=== PATIENT | male | born 1970 | race Caucasian/White ===

== ENCOUNTER 2024-06-11 09:29 | Outpatient (OUT) | payer BC, SELFPAY ==
[2024-06-11 10:26] LABS: Alanine Aminotransferase 87 U/L (16-63); Anion Gap 11.5; BUN Creatinine Ratio 12.7; Calcium 9.2 mg/dL (8.5-10.1); Carbon Dioxide 28.9 mmol/L (21.0-32.0); Chloride 102 mmol/L (98-107); Chol HDL Ratio 4.3; Cholesterol 209 mg/dL (<=200); Estimated GFR (African America >60 (>=60 mL/min/1.73m^2); Estimated GFR (Non-African Ame 55 (>=60 mL/min/1.73m^2); Glucose 184 mg/dL (74-106); HDL Cholesterol 49 mg/dL (40-60); Potassium 4.4 mmol/L (3.5-5.1); Sodium 138 mmol/L (136-145); Triglycerides 145 mg/dL (<=150)
[2024-06-11 10:46] LABS: Estimated Average Glucose 206 mg/dL; Glycohemoglobin A1C 8.8 % (4.5-6.2)
== END 2024-06-11 09:30 | disposition home or self-care (01) ==
LOC: LAB 09:29
DX: E11.9 Type 2 diabetes mellitus without complications (principal)
CPT/HCPCS: 36415; 80048; 80061; 83036; 84460

== ENCOUNTER 2024-10-25 12:53 | Outpatient (OUT) | payer BC, SELFPAY ==
--- OUTSIDE RECORDS SUMMARY | 2024-10-25 12:58 | XMS_ITS | Clinical Summary ---
Author Organization [facility] Address [address] [place] [address] Care Team Providers Care Automation Application Engineer Name Role Phone Unavailable Primary Care Provider Unavailabl e Allergies No known active allergies Medications ASPIRIN EC [address] Take 1 tablet by mouth. Active Atorvastatin 20 MG tablet Take 1 tablet by mouth at bedtime. 3 Active Jardiance 25 MG tablet Take 1 tablet by mouth daily every morning. 3 Active metFORMIN 500 MG tablet TAKE 2 TABLETS BY MOUTH TWICE DAILY WITH MORNING MEAL AND WITH EVENING MEAL 3 Active tizanidine 4 MG capsule TAKE 1 CAPSULE BY MOUTH THREE TIMES DAILY FOR 7 DAYS 3 Active traMADol 50 MG tablet TAKE 1 TABLET BY MOUTH 4 TIMES DAILY NEEDED FOR RIB PAIN 3 Active lidocaine 5 % Patch patch Place 1 patch on skin every 24 hours. Max of 12 hours of application then remove. 12 patch 3 Active Celecoxib 200 MG capsuleIndicatio ns:Segmental and somatic dysfunction of sacral region Take 1 capsule by mouth daily. 30 capsule 5 3 Active Social History Tobacco Use Types Packs/Day Years Used Date Smoking Tobacco: Never Smokeless Tobacco: Never Tobacco Cessation:Counseling Given: Not Answered Alcohol Use Standard Drinks/Week Comments Yes 2 (1 standard drink = 0.6 oz pur e alcohol) Sex and Gender Information Value Date Recorded Sex Assigned at Not on file Legal Sex Male 3:28 AM EST Gender Identity Not on file Sexual Orientation Not on file Last Filed Vital Signs Vital Sign Reading Time Taken Comments Blood Pressure 106/74 04/30/2022 2:43 PM EST Pulse 63 04/30/2022 2:43 PM EST Temperature 36.6 C (97.8 F) 04/27/2022 3:38 AM EST Respiratory Rate 18 04/30/2022 2:43 PM EST Oxygen Saturation 95% 04/30/2022 2:43 PM EST Inhaled Oxygen Concentration - - Weight 108.9 kg (240 lb 1.3 oz) 04/30/2022 2:43 PM EST Height 175.3 cm (5' 9.02 ) 04/30/2022 2:43 PM ES T Body Mass Index 35.44 04/30/2022 2:43 PM EST Plan of Treatment Health Maintenance Due Date Last Done Comments HEPATITIS C VIRUS SCREENING 1968 TETANUS 1968 HIV SCREENING DISCUSSION 08/27/1983 HEP B VACCINE (1 of 3 - 19+ 3-dose series) 08/27/1987 TDAP (ADULT) 08/27/1987 LIPID SCREENING 2008 COLORECTAL CANCER SCREENING DISCUSSION 2013 PNEUMOCOCCAL VACCINE SERIES (1 of 1 - PCV) 2018 ZOSTER (SHINGLES) VACCINE (1 of 2) 2018 PROSTATE CANCER SCREENING DISCUSSION 08/27/2023 COVID-19 VACCINE (1 - season) 2023 INFLUENZA VACCINE (#1) 2024 Insurance [facility] PPO POS Member Subscriber Plan / Payer (Ef fective 2020-Present) Name:SLICK LY Relation to Subscriber:Self Name:Slick Ly Payer ID:[id number] (NAIC) Type:Not on file Address: [address] [place] [id number]
--- OUTSIDE RECORDS SUMMARY | 2024-10-25 12:58 | XMS_ITS | Patient Health Record ---
Author Organization [facility] Address [address] [place] [address] Care Team Providers Care Supervisor Roller Printing Name Role Phone Roxy Segoviay Primary Care Provider Unavailabl e Reason For Referral No Information Plan Of Treatment No Information Insurance Providers Payer Name Payer Address Payer Phone Subscriber Number Group Number Insured Name Patient Relationship to Insured Coverage Start Date Coverage End Date [facility] [address] [place] [phone] [id number] SLICK CHERY Self - patient is the insured
--- OUTSIDE RECORDS SUMMARY | 2024-10-25 12:58 | XMS_ITS | Clinical Summary ---
Author Organization [facility] Address [address], [address] [place] [address] Care Team Providers Care Hunter Guide Name Role Phone Sofia De PA-C Primary Care Provider [phone] Allergies No known active allergies Medications metFORMIN (GLUCOPHAGE) 500 MG tablet Take 1 tablet by mouth 2 times daily (with meals) Active atorvastatin (LIPITOR) 20 MG tablet Take 1 tablet by mouth daily Active empagliflozin (JARDIANCE) 25 MG tablet Take 1 tablet by mouth daily Active ondansetron (ZOFRAN-ODT) 4 MG disintegrating tablet Take 1 tablet by mouth 3 times daily as needed for Nausea or Vomiting 21 tablet Active Social History Tobacco Use Types Packs/Day Years Used Date Smoking Tobacco: Never Smokeless Tobacco: Former Tobacco Cessation:Counseling Given: Not Answered Alcohol Use Standard Drinks/Week Comments Yes 0 (1 standard drink = 0.6 oz pur e alcohol) occasional Interpersonal Safety Domain Source: IP Abuse Scr eening Answer Date Recorded Read-Only, Retired: Physical Abuse Denies 04/22/2023 Read-Only, Retired: Verbal Abuse Denies 04/22/2023 Read-Only, Retired: Emotional abuse Denies 04/22/2023 Financial abuse Not on file 04/22/2023 Sexual abuse Not on file 04/22/2023 Sex and Gender Information Value Date Recorded Sex Assigned at Not on file Legal Sex Male 11:38 AM EDT Gender Identity Not on file Sexual Orientation Not on file Last Filed Vital Signs Vital Sign Reading Time Taken Comments Blood Pressure 128/83 04/22/2023 7:00 PM EST Pulse 73 04/22/2023 4:55 PM EST Temperature 36.7 C (98 F) 04/22/2023 4:55 PM EST Respiratory Rate 16 04/22/2023 4:55 PM EST Oxygen Saturation 93% 04/22/2023 7:00 PM EST Inhaled Oxygen Concentration - - Weight 108.9 kg (240 lb) 04/22/2023 4:55 PM EST Height 176.5 cm (5' 9.5 ) 04/22/2023 4:55 PM EST Body Mass Index 34.93 04/22/2023 4:55 PM EST Plan of Treatment Health Maintenance Due Date Last Done Comments Depression Screen 1980 HIV screen 08/27/1983 Hepatitis C screen 1986 DTaP/Tdap/Td vaccine (1 - Tdap) 08/27/1987 Hepatitis B vaccine (1 of 3 - 19+ 3-dose series) 08/27/1987 Colonoscopy 2013 Colorectal Cancer Screen 2013 FIT/FOBT: Average risk 2013 Fecal-DNA (Cologuard): Average risk 2013 Sigmoidoscopy/CT colonography 2013 Pneumococcal 50+ years Vaccine (1 of 1 - PCV) 2018 Shingles vaccine (1 of 2) 2018 COVID-19 Vaccine (1 - season) 2023 Lipids 07/20/2024 07/21/2023, 05/02, 10/25/2021 Flu vaccine (#1) 10/01/2024 A1C test (Diabetic or Prediabetic) 12/09/2024 12/10/2023, 07/21/2023, 01/06/2023, Additional history exists Diabetes screen Discontinued 12/10/2023, 07/02, 01/06/2023, Additional history exists Hepatitis A vaccine Aged Out No longe r eligible based on patient's age to complete this topic Hib vaccine Aged Out No longer eligi ble based on patient's age to complete this topic Meningococcal (ACWY) vaccine Aged Out No longer eligible based on patient's age to complete this topic Meningococcal B vaccine Aged Out No l onger eligible based on patient's age to complete this topic Polio vaccine Aged Out No longer elig ible based on patient's age to complete this topic Procedures Procedure Name Priority Date/Time Associated Diagnosis Comments HEMOGLOBIN A1C, HEALTH FAIR Routine 12/10/2023 9:44 AM EDT LIPID PANEL Routine 07/21/2023 12:57 PM EDT from Last 3 Months or Most Recently Relevant to Health Maintenance Results * (ABNORMAL) Hemoglobin A1c, Health Fair (12/10/2023 9:44 AM EDT) Hemoglobin A1C 6.3(H) 4.0 - 5.6 % 12/10/2023 9:44 AM EDT [facility] Comment: [place] [employer] guidelines indicate that patients with HgbA1C in the range of 5.7-6.4% are at increased risk for development of diabetes, and intervention by lifestyle modification may be beneficial. HgbA1C greater than or equal to 6.5% is considered diagnostic of diabetes. Hemoglobin A1c should not be used in patients with homozygous sickle cell trait, hemolytic anemia, or other hemolytic diseases and recent significant or chronic blood loss or blood transfusions. Alternative forms of testing such as glycated serum protein or glycated albumin should be considered for these patients. Estimated Avg Glucose 135 mg/dL 12/10/2023 9:44 AM EDT [facility] Comment: Estimated Average Glucose is a caluculated value from Hemoglobin A1C and is healthcare representative of the average blood glucose level in the last 2-3 month period. Blood Whole 12/10/2023 9:44 AM EDT 12/10/2023 9:44 AM EDT [facility] HEMATOLOGY ORDERABLES Final Resu lt [facility] [address] [place], [place] [id number] * Lipid Panel (07/21/2023 12:57 PM EDT) Cholesterol, Total 126 100 - 200 mg/dL 07/21/2023 12:57 PM EDT [facility] Comment: <200 mg/dL is recommended cholesterol level. Triglycerides 59 10 - 150 mg/dL 07/21/2023 12:57 PM EDT [facility] HDL 58 >40 mg/dL 07/21/2023 12:57 PM EDT [facility] LDL Cholesterol 56 20 - 100 mg/dL 07/21/2023 12:57 PM EDT [facility] CHOLESTEROL/HDL RELATIVE RISK 2 1 - 5 Ratio 07/21/2023 12:57 PM EDT [facility] Blood Serum 07/21/2023 12:5 7 PM EDT 07/21/2023 12:57 PM EDT us Sofia De PA-C CHEMISTRY ORDERABLES Final Result [facility] [address] [address] from Last 3 Months or Most Recently Relevant to Health Maintenance Insurance [place] [employer] Care Teams Hunter Guide Relationship Specialty Start Date End Date Sofia De PA-C [address] [place] [address] PCP - General Physician Site Manager 05/21/22
--- OUTSIDE RECORDS SUMMARY | 2024-10-25 12:58 | XMS_ITS | Clinical Summary ---
Author Organization [facility] Address [facility] [place] [address] Care Team Providers Care Product Merchandiser Name Role Phone No, Physician Primary Care Provider Unavailabl e Allergies No known active allergies Medications Jardiance 25 mg Tab 10/08/2021 Active metFORMIN (GLUCOPHAGE) 500 MG tablet TAKE 2 TABLETS BY MOUTH TWICE DAILY WITH MORNING MEAL AND WITH EVENING MEAL 09/23/2021 Active atorvastatin (LIPITOR) 20 MG tablet 10/08/2021 Active aspirin 325 MG EC tablet Take 1 (one) tablet (325 mg total) by mouth . Active tadalafiL 20 MG tablet 10/31/2021 Active pseudoephedrine -DM-guaiFENesin 60-15-400 mg Tab Take 1 (one) tablet by mouth 3 (three) times a day as needed . 20 tablet 07/24/2024 Active Active Problems No known active problems Social History Tobacco Use Types Packs/Day Years Used Date Smoking Tobacco: Never Smokeless Tobacco: Former Tobacco Cessation:Counseling Given: Not Answered Alcohol Use Standard Drinks/Week Comments Yes 0 (1 standard drink = 0.6 oz pur e alcohol) Sex and Gender Information Value Date Recorded Sex Assigned at Not on file Legal Sex Male 9:43 AM EDT Gender Identity Not on file Sexual Orientation Not on file Last Filed Vital Signs Vital Sign Reading Time Taken Comments Blood Pressure 135/82 07/24/2024 10:01 AM EDT Pulse 78 07/24/2024 10:01 AM EDT Temperature 36.2 C (97.1 F) 07/24/2024 10:01 AM EDT Respiratory Rate 16 07/24/2024 10:01 AM EDT Oxygen Saturation 96% 07/24/2024 10:01 AM EDT Inhaled Oxygen Concentration - - Weight 109.8 kg (242 lb) 07/24/2024 10:01 AM EDT Height 175.3 cm (5' 9 ) 07/24/2024 10:01 AM EDT Body Mass Index 35.74 07/24/2024 10:01 AM EDT Plan of Treatment Health Maintenance Due Date Last Done Comments CT Colonography 1968 Colonoscopy 1968 Colorectal Cancer Screening/Monitoring 1968 Fecal DNA 1968 Fecal occult blood test (FOBT,FIT) 1968 PSA Level 1968 Tetanus: Every 10yrs 1968 Wellness Visit 08/27/1971 Depression Screening/Follow-Up (PHQ-2/9) 1980 HIV Screening 08/27/1983 Hepatitis C Screening 1986 Flexible sigmoidoscopy 2018 Pneumococcal Vaccine: Age 50 + (1 of 1 - PCV) 2018 Zoster Vaccines (1 of 2) 2018 COVID-19 Vaccine (3 - season) 2023, 02/28/2020 Influenza Vaccine (#1) 2024 12/15/2013 Insurance [employer]/PREF/HMO/PPO Care Teams Product Merchandiser Relationship Specialty Start Date End Date No, Physician [facility] PCP - General 11/04/21
[2024-10-25 13:37] LABS: Microalbum Creatinine Ratio Ur 10.1 mg/g (0.0-29.9)
[2024-10-25 13:38] LABS: Alanine Aminotransferase 58 U/L (16-63); Albumin Globulin Ratio 1.0; Albumin Level 4.3 g/dL (3.4-5.0); Alkaline Phosphatase 56 U/L (46-116); Anion Gap 14.3; Aspartate Amino Transferase 32 U/L (15-37); Blood Urea Nitrogen 16.0 mg/dL (7.0-18.0); Calcium 9.1 mg/dL (8.5-10.1); Carbon Dioxide 28.4 mmol/L (21.0-32.0); Chloride 103 mmol/L (98-107); Cholesterol 138 mg/dL (<=200); Estimated GFR (African America >60 (>=60 mL/min/1.73m^2); Estimated GFR (Non-African Ame >60 (>=60 mL/min/1.73m^2); Globulin 4.3 g/dL; Glucose 112 mg/dL (74-106); HDL Cholesterol 56 mg/dL (40-60); Potassium 4.7 mmol/L (3.5-5.1); Sodium 141 mmol/L (136-145); Total Protein 8.6 g/dL (6.4-8.2); Triglycerides 73 mg/dL (<=150); VLDL CHOLESTEROL 14.6 mg/dL
== END 2024-10-25 12:54 | disposition home or self-care (01) ==
LOC: LAB 12:55
DX: E78.5 Hyperlipidemia, unspecified (principal); E11.9 Type 2 diabetes mellitus without complications; E66.9 Obesity, unspecified; N52.9 Male erectile dysfunction, unspecified
CPT/HCPCS: 36415; 80053; 80061; 82043; 82570; 83036